=== PATIENT | female | born 1965 | race Caucasian/White ===

== ENCOUNTER → 2017-02-05 | Outpatient (CLI) | payer OTHER ==
[~2017-02-05] MED LIST: IOPAMIDOL (ISOVUE-300) 100 ML BTL IV ONE
== END ==
LOC: FIMAGING 10:18
PROVIDERS: ATTEND Internal Medicine Gastroenterology
DX: R10.30 Lower abdominal pain, unspecified (principal); M51.36 Other intervertebral disc degeneration, lumbar region
CPT/HCPCS: Q9967

== ENCOUNTER 2017-09-23 15:16 | Day surgery (SDC) | payer OTHER ==
--- NOTE | 2017-09-23 15:51 | CPEKG ---
Heart Rate: 46 RR Interval: 1304 P-R Interval: 176 QRSD Interval: 84 QT Interval: 480 QTC Interval: 420 P [place]: 19 QRS [place]: 28 T Wave [place]: 31 EKG Severity - OTHERWISE NORMAL ECG - EKG Impression: SINUS BRADYCARDIA EKG Impression: Agree with above Electronically Signed By: Goyo Etienne 23-Sep-2017 19:39:05
[2017-09-23] MEDS ORDERED: LR 1,000 ML IV ONE (15:52)
[2017-09-23 16:03] VITALS: PULSE 49
[2017-09-23 16:10] LABS: % IMMATURE GRANULYOCYTES 0.2 % (0.0-1.1); ABSOLUTE IMMATURE GRANULOCYTES 0.01 10^3/uL (0.00-0.10); ADD DIFF? NO; ADD MORPH? NO; ADD SCAN? NO; ATYPICAL LYMPHOCYTE FLAG 0 (0-99); FRAGMENT RBC FLAG 0 (0-99); HEMATOCRIT 38.3 % (38.0-47.0); HEMOGLOBIN 13.4 g/dL (12.6-16.3); LEFT SHIFT FLG 0 (0-99); LIPEMIA HEMOLYSIS FLAG 90 (0-99); MEAN CELL HEMOGLOBIN 31.8 pg (27.9-34.1); MEAN CELL VOLUME 90.8 fL (81.5-99.8); MEAN PLATELET VOLUME 10.5 fL (8.7-11.7); PLATELET CLUMPS FLAG 0 (0-99); PLATELET COUNT 170 10^3/uL (150-400); RED BLOOD CELL COUNT 4.22 10^6/uL (4.18-5.33); RED CELL DISTRIBUTION WIDTH 13.5 % (11.5-15.2)
--- NOTE | 2017-09-23 16:53 | PDGENHP ---
History & Physical Chief Complaint: Abdominal pain History of Present Illness: Abdominal pain. Early satiety. Gas bloat Pertinent Past, Social, Family History: No ETOH. No Tobacco Relevant Physical Exam: NAD. CTA B/L. RRR without m/r/g. ABD soft. NABS. NT/ ND. No ascites. Cardiorespiratory Assessment: ASA II. Abdominal pain. EGD with biopsy
[2017-09-23] MEDS ORDERED: LIDOCAINE 2% 5 ML SDV ONE (16:55)
[2017-09-23] MEDS ORDERED: PROPOFOL 200 MG/20 ML VIAL ONE ×2 (16:55→16:56)
--- NOTE | 2017-09-23 17:12 | GIREPORT ---
[facility] Surgical Services - Endoscopy Department Patient Name: Brenda Faith Procedure Date: 09/23/2017 4:47 PM Patient Type: Outpatient Attending MD/ ER Physician: Dong Redd MD Procedure: Upper GI endoscopy Indications: Epigastric abdominal pain, Abdominal bloating, Early satiety Providers: Dong Redd MD Medicines: Propofol per Anesthesia Complications: No immediate complications. Description of Procedure: After obtaining informed consent, the endoscope was passed under direct vision. Throughout the procedure, the patient's blood pressure, pulse, and oxygen saturations were monitored continuously. The Endoscope was intro duced through the mouth, and advanced to the second part of duodenum. [facility] er GI endoscopy was accomplished without difficulty. The patient tolerated th e procedure well. Findings: The esophagus was normal. The entire examined stomach was normal. Biopsies were taken with a cold forceps for histology. The duodenal bulb, first portion of the duodenum, second portion of the duodenum and area of the papilla were normal. Biopsies for histology we re taken with a cold forceps for evaluation of celiac disease. Estimated Blood Loss: Estimated blood loss: none. Post Op Diagnosis: - Normal esophagus. - Normal stomach. Biopsied. - Normal duodenal bulb, first portion of the duodenum, second portion o f the duodenum and area of the papilla. Biopsied. Recommendation: - Await pathology results. - Continue present medications. - Resume previous diet. - Patient has a contact number available for emergencies. The signs and symptoms of potential delayed complications were discussed with the pat ient. Return to normal activities tomorrow. Written discharge instructions we re provided to the patient. - Return to physician recreational assistant as previously scheduled. - Thank you for allowing me to be involved in the care of your patient. Attending Participation: I personally performed the entire procedure. Dong Redd MD Dong Redd MD 09/23/2017 5:11:27 PM This report has been signed electronicallyDavid MD Tramaine Number of Addenda: 0 Note Initiated On: 09/23/2017 4:47 PM [email or web address]
[2017-09-23] MEDS ORDERED: ACETAMINOPHEN 500 MG TAB PO PRN (17:13)
[2017-09-23] MEDS ORDERED: ONDANSETRON 4 MG/2 ML VIAL IVP PRN (17:13)
[2017-09-23] MEDS ORDERED: NALOXONE HCL 0.4 MG/ML INJ IVP PRN (17:13)
[2017-09-23] MEDS ORDERED: ALBUTEROL 3 ML DEYVIAL IH PRN (17:13)
--- NOTE | 2017-09-23 17:14 | POSTANESTH ---
Post Anesthetic Evaluation Cardiovascular Status: Normal, Stable Respiratory Status: Normal, Stable Level of Consciousness/Mental Status: Can Participate in Eval Pain Control: Adequate, Prn Tx Ordered Nausea/Vomiting Control: Adequate, Prn Tx Ordered Complications Possibly Related to Anesthesia: None Noted
[2017-09-23 17:22] VITALS: TEMP 98.6
[2017-09-23 18:28] VITALS: BP 105/62; RESP 14
[2017-09-23 22:47] VITALS: O2SAT 16
== END 2017-09-23 18:54 | disposition home or self-care (01) ==
LOC: FSGY 15:16
PROVIDERS: ATTEND Internal Medicine Gastroenterology
PROC: 0DB68ZX Excision of Stomach, Via Natural or Artificial Opening Endoscopic, Diagnostic (ICD-10-PCS; principal; 2017-09-23 16:15)
PROC: 0DB98ZX Excision of Duodenum, Via Natural or Artificial Opening Endoscopic, Diagnostic (ICD-10-PCS; principal; 2017-09-23 16:15)
DX: R10.13 Epigastric pain (principal); R14.0 Abdominal distension (gaseous); R68.81 Early satiety
CPT/HCPCS: J2704

== ENCOUNTER → 2017-09-29 | Outpatient (CLI) | payer OTHER ==
--- NOTE | 2017-09-23 16:30 | PDANEPAE ---
ANE History of Present Illness EGD for pancreatitis ANE Past Medical History - Cardiovascular History Hx Hypertension: No Hx Arrhythmias: No Hx Chest Pain: No Hx Coronary Artery / Peripheral Vascular Disease: No Hx CHF / Valvular Disease: No Hx Palpitations: No - Pulmonary History Hx COPD: No Hx Asthma/Reactive Airway Disease: No Hx Recent Upper Respiratory Infection: No Hx Oxygen in Use at Home: No Hx Sleep Apnea: No - Neurologic History Hx Cerebrovascular Accident: No Hx Seizures: No Hx Dementia: No - Endocrine History Hx Diabetes: No Hypothyroid: Yes Hyperthyroid: No Obesity: no - Liver History Hx Hepatic Disorders: No ANE Review of Systems Review of systems is: negative Review of Systems: - Exercise capacity Exercise capacity: >=4 METS ANE Patient History - Allergies Allergies/Adverse Reactions: No Known Allergies Allergy (Verified 09/22/17 18:12) - Home Medications Home medications: home medication list seen and reviewed Home Medications: Herbals/Supplements -Info Only 09/22/17 [Last Taken 09/22/17 07:00] Synthroid 09/22/17 [Last Taken 09/22/17 07:00] - NPO status NPO Status: no food or drink >8 hours - Anes Hx Anes Hx: post operative nausea and vomiting - Smoking Hx Smoking Status: Never smoked - Alcohol Use Alcohol Use: Occasionally - Family Anes Hx Family Anes Hx: none ANE Labs/Vital Signs - Vital Signs Vital Signs: reviewed preoperatively; see RN documention for details ANE Physical Exam - Airway Mallampati Score: Class 2 Mouth exam: normal dental/mouth exam - Pulmonary Pulmonary: no respiratory distress - Cardiovascular Cardiovascular: regular rate and rhythym - ASA Status ASA Status: II ANE Anesthesia Plan Anesthesia Plan: GA with mask
== END ==
LOC: FIMAGING 09:34
PROVIDERS: ATTEND Physician Assistant
DX: R14.0 Abdominal distension (gaseous) (principal)

== ENCOUNTER → 2017-10-31 | Outpatient (CLI) | payer OTHER | LOC: FIMAGING 08:10 | PROVIDERS: ATTEND Physician Assistant | DX: R63.0 Anorexia (principal) | CPT/HCPCS: 78227; A9537 ==

== ENCOUNTER → 2018-11-12 | Outpatient (CLI) | payer OTHER | LOC: CIMAGING 08:45 | PROVIDERS: ATTEND Family Medicine | DX: Z12.31 Encounter for screening mammogram for malignant neoplasm of breast (principal) ==

== ENCOUNTER → 2018-11-23 | Outpatient (CLI) | payer OTHER | END | disposition home or self-care (01) | LOC: CIMAGING 12:52 | PROVIDERS: ATTEND Family Medicine | DX: R92.8 Other abnormal and inconclusive findings on diagnostic imaging of breast (principal) ==

== ENCOUNTER → 2018-11-26 | Outpatient (CLI) | payer OTHER | LOC: CIMAGING 07:22 | PROVIDERS: ATTEND Internal Medicine Hematology & Oncology | DX: K76.0 Fatty (change of) liver, not elsewhere classified (principal); K80.20 Calculus of gallbladder without cholecystitis without obstruction | CPT/HCPCS: 76700-PO ==